=== PATIENT | male | born 1950 | race Caucasian/White ===

== ENCOUNTER → 2016-08-03 | Outpatient (REF) | payer MEDICARE, OTHER | LOC: M LABDRAWC 16:21 | PROVIDERS: ATTEND Nurse Practitioner Adult Health | DX: N39.0 Urinary tract infection, site not specified (principal) ==

== ENCOUNTER → 2016-09-22 | Outpatient (REF) | payer MEDICARE, OTHER ==
[2016-09-22 17:32] LABS: INR 1.4
== END ==
LOC: M LABDRAWC 16:32
PROVIDERS: ATTEND Internal Medicine
DX: Z51.81 Encounter for therapeutic drug level monitoring (principal); Z79.01 Long term (current) use of anticoagulants

== ENCOUNTER → 2016-09-22 | Outpatient (REF) | payer MEDICARE, OTHER | LOC: M LABDRAWC 16:33 | PROVIDERS: ATTEND Urology | DX: C61 Malignant neoplasm of prostate (principal); Z51.81 Encounter for therapeutic drug level monitoring; Z79.01 Long term (current) use of anticoagulants ==

== ENCOUNTER → 2016-10-06 | Outpatient (REF) | payer MEDICARE, OTHER ==
[2016-10-06 17:52] LABS: INR 2.3
== END ==
LOC: M LABDRAWC 16:27
PROVIDERS: ATTEND Family Medicine
DX: Z86.711 Personal history of pulmonary embolism (principal)

== ENCOUNTER → 2016-10-27 | Outpatient (REF) | payer MEDICARE, OTHER ==
[2016-10-27 18:52] LABS: INR 2.02
== END ==
LOC: M LABDRAWC 16:46
PROVIDERS: ATTEND Family Medicine
DX: Z79.01 Long term (current) use of anticoagulants (principal)

== ENCOUNTER → 2016-11-17 | Outpatient (REF) | payer MEDICARE, OTHER ==
[2016-11-17 16:41] LABS: INR 1.93
== END ==
LOC: M LAB REF 16:27
PROVIDERS: ATTEND Family Medicine
DX: Z79.01 Long term (current) use of anticoagulants (principal)

== ENCOUNTER → 2016-12-23 | Outpatient (REF) | payer MEDICARE, OTHER ==
[2016-12-23 19:33] LABS: INR 1.99
== END ==
LOC: M LAB REF 10:24
PROVIDERS: ATTEND Family Medicine
DX: Z86.711 Personal history of pulmonary embolism (principal); Z79.01 Long term (current) use of anticoagulants

== ENCOUNTER → 2017-01-14 | Outpatient (REF) | payer MEDICARE, OTHER ==
[2017-01-14 17:59] LABS: INR 2.22
== END ==
LOC: M LAB REF 17:09
PROVIDERS: ATTEND Family Medicine
DX: Z79.01 Long term (current) use of anticoagulants (principal)

== ENCOUNTER → 2017-08-16 | Outpatient (REF) | payer MEDICARE, OTHER ==
[2017-08-16 18:11] LABS: INR 1.96
== END ==
LOC: M LABDRAWC 16:22
DX: Z79.01 Long term (current) use of anticoagulants (principal)
CPT/HCPCS: 85610

== ENCOUNTER → 2017-10-10 | Outpatient (REF) | payer MEDICARE, OTHER ==
[2017-10-10 17:53] LABS: INR 2.48; PROTHROMBIN TIME 27.3 SECONDS (12.1-14.4)
== END ==
LOC: M LAB REF 16:54
DX: Z51.81 Encounter for therapeutic drug level monitoring (principal); Z79.01 Long term (current) use of anticoagulants; Z86.718 Personal history of other venous thrombosis and embolism; Z86.711 Personal history of pulmonary embolism
CPT/HCPCS: 85610

== ENCOUNTER 2020-09-23 18:28 | Emergency (ER) | payer MEDICARE, OTHER ==
[~2020-09-23] VITALS: Ht 185.4 cm; Wt 111.5 kg
[2020-09-23] MEDS ORDERED: CEPHALEXIN 500 MG CAP PO ONE (19:45)
[2020-09-23] MEDS ORDERED: CEPH500C PO (19:55)
[2020-09-23 20:57] VITALS: BP 176/96
== END 2020-09-23 21:01 | disposition left against medical advice (07) ==
LOC: EDBD 18:28 → M ED 18:28
DX: L03.115 Cellulitis of right lower limb (principal); I10 Essential (primary) hypertension; L97.519 Non-pressure chronic ulcer of other part of right foot with unspecified severity; Z88.8 Allergy status to other drugs, medicaments and biological substances

== ENCOUNTER → 2020-10-20 | Outpatient (REF) | payer MEDICARE, OTHER ==
[~2020-10-20] MED LIST: CEPH500C PO
[2020-10-20 15:35] LABS: BASO % 0.4 % (0.0-1.0); EOS # 0.3 10^3/uL (0.0-0.5); EOS % 3.3 % (0.0-3.0); HEMATOCRIT 33.9 % (42.0-52.0); HEMOGLOBIN 10.8 g/dl (13.5-17.5); LYMPH # 1.3 10^3/uL (1.5-5.0); LYMPH % 12.8 % (24.0-44.0); MEAN CORPUSCULAR HEMOGLOBIN 30.3 pg (27.0-33.0); MEAN CORPUSCULAR HGB CONC 31.9 g/dl (32.0-36.5); MEAN CORPUSCULAR VOLUME 95.2 fl (80.0-96.0); MONO # 0.8 10^3/uL (0.0-0.8); MONO % 8.2 % (2.0-8.0); NEUTROPHILS # 7.5 10^3/uL (1.5-8.5); NEUTROPHILS % 74.3 % (36.0-66.0); PLATELET COUNT, AUTOMATED 294 10^3/uL (150-450); RED BLOOD COUNT 3.56 10^6/uL (4.30-6.10); WHITE BLOOD COUNT 10.1 10^3/uL (4.0-10.0)
[2020-10-20 15:55] LABS: ERYTHROCYTE SEDIMENTATION RATE 63 mm/hr (0-20)
[2020-10-20 16:08] LABS: ALBUMIN 3.2 GM/DL (3.2-5.2); BILIRUBIN,TOTAL 0.3 MG/DL (0.2-1.0); C REACTIVE PROTEIN QUANTITATIV 2.86 MG/DL (0.00-0.30); CALCIUM LEVEL 8.7 MG/DL (8.8-10.2); CREATININE FOR GFR 1.28 MG/DL (0.70-1.30); GLOMERULAR FILTRATION RATE 59.3 (>49); TOTAL PROTEIN 7.4 GM/DL (6.4-8.2)
== END ==
LOC: M LAB REF 14:43
DX: Z79.899 Other long term (current) drug therapy (principal)

== ENCOUNTER → 2020-10-27 | Outpatient (REF) | payer MEDICARE, OTHER ==
[2020-10-27 16:47] LABS: BASO % 0.4 % (0.0-1.0); EOS # 0.4 10^3/uL (0.0-0.5); EOS % 6.1 % (0.0-3.0); HEMATOCRIT 31.9 % (42.0-52.0); HEMOGLOBIN 10.1 g/dl (13.5-17.5); LYMPH # 1.4 10^3/uL (1.5-5.0); LYMPH % 20.1 % (24.0-44.0); MEAN CORPUSCULAR HEMOGLOBIN 30.4 pg (27.0-33.0); MEAN CORPUSCULAR HGB CONC 31.7 g/dl (32.0-36.5); MEAN CORPUSCULAR VOLUME 96.1 fl (80.0-96.0); MONO # 0.7 10^3/uL (0.0-0.8); MONO % 10.5 % (2.0-8.0); NEUTROPHILS # 4.3 10^3/uL (1.5-8.5); NEUTROPHILS % 62.2 % (36.0-66.0); PLATELET COUNT, AUTOMATED 294 10^3/uL (150-450); RED BLOOD COUNT 3.32 10^6/uL (4.30-6.10); WHITE BLOOD COUNT 6.9 10^3/uL (4.0-10.0)
[2020-10-27 17:08] LABS: ALBUMIN 3.2 GM/DL (3.2-5.2); BILIRUBIN,TOTAL 0.2 MG/DL (0.2-1.0); C REACTIVE PROTEIN QUANTITATIV 1.27 MG/DL (0.00-0.30); CALCIUM LEVEL 8.4 MG/DL (8.8-10.2); CREATININE FOR GFR 1.31 MG/DL (0.70-1.30); GLOMERULAR FILTRATION RATE 57.8 (>49); TOTAL PROTEIN 6.6 GM/DL (6.4-8.2)
[2020-10-27 17:17] LABS: ERYTHROCYTE SEDIMENTATION RATE 47 mm/hr (0-20)
== END ==
LOC: M LAB REF 16:08
DX: Z79.2 Long term (current) use of antibiotics (principal)

== ENCOUNTER → 2023-09-05 | Outpatient (REF) | payer MEDICARE, OTHER ==
[2023-09-05 18:38] LABS: BASO % 0.5 % (0.0-1.0); EOS # 0.3 10^3/uL (0.0-0.5); EOS % 3.8 % (0.0-3.0); HEMATOCRIT 40.2 % (42.0-52.0); HEMOGLOBIN 13.3 g/dl (13.5-17.5); LYMPH # 0.8 10^3/uL (1.5-5.0); LYMPH % 12.4 % (24.0-44.0); MEAN CORPUSCULAR HGB CONC 33.1 g/dl (32.0-36.5); MEAN CORPUSCULAR VOLUME 93.7 fl (80.0-96.0); MONO # 1.4 10^3/uL (0.0-0.8); MONO % 21.3 % (2.0-8.0); NEUTROPHILS # 4.1 10^3/uL (1.5-8.5); NEUTROPHILS % 61.2 % (36.0-66.0); PLATELET COUNT, AUTOMATED 315 10^3/uL (150-450); RED BLOOD COUNT 4.29 10^6/uL (4.30-6.10); WHITE BLOOD COUNT 6.6 10^3/uL (4.0-10.0)
[2023-09-05 19:01] LABS: ALBUMIN 3.4 G/DL (3.2-5.2); ALKALINE PHOSPHATASE 93 U/L (46-116); ALT/SGPT 19 U/L (7.0-40); AST/SGOT 19 U/L (<34); BILIRUBIN,TOTAL 0.7 MG/DL (0.3-1.2); BLOOD UREA NITROGEN 15 MG/DL (9-23); CALCIUM LEVEL 8.9 MG/DL (8.3-10.6); CARBON DIOXIDE LEVEL 29 MMOL/L (20-31); CHLORIDE LEVEL 105 MMOL/L (98-107); CHOLESTEROL LEVEL 111 MG/DL (<200); CHOLESTEROL RISK RATIO 2.85 (<5); GLOMERULAR FILTRATION RATE > 60.0 (>42); GLUCOSE, FASTING 94 MG/DL (74-106); HDL CHOLESTEROL 38.9 MG/DL (>40); LDL CHOLESTEROL 58.9 MG/DL (<100); NON-HDL-C 72.1 MG/DL; POTASSIUM SERUM 4.6 MMOL/L (3.5-5.1); SODIUM LEVEL 139 MMOL/L (136-145); TOTAL PROTEIN 6.8 G/DL (5.7-8.2); TRIGLYCERIDES LEVEL 66 MG/DL (<150)
[2023-09-05 19:49] LABS: HEMOGLOBIN A1c 5.8 % (4.0-6.0)
[2023-09-07 08:13] LABS: LDL DIRECT 58 mg/dL (0-99)
== END ==
LOC: M LABDRAWC 17:14
PROVIDERS: ATTEND Internal Medicine Cardiovascular Disease
DX: E11.9 Type 2 diabetes mellitus without complications (principal); I25.10 Atherosclerotic heart disease of native coronary artery without angina pectoris; E78.5 Hyperlipidemia, unspecified

== ENCOUNTER → 2023-09-15 | Outpatient (REF) | payer MEDICARE, OTHER ==
[2023-09-15 19:21] LABS: BLOOD UREA NITROGEN 16 MG/DL (9-23); CALCIUM LEVEL 8.6 MG/DL (8.3-10.6); CARBON DIOXIDE LEVEL 29 MMOL/L (20-31); CHLORIDE LEVEL 99 MMOL/L (98-107); GLOMERULAR FILTRATION RATE > 60.0 (>42); GLUCOSE, FASTING 113 MG/DL (74-106); POTASSIUM SERUM 3.6 MMOL/L (3.5-5.1); PROSTATIC SPECIFIC AG MONITOR 0.04 NG/ML (< 4.00); SODIUM LEVEL 136 MMOL/L (136-145)
[2023-09-15 19:23] LABS: TESTOSTERONE 112 NG/DL (241-827)
== END ==
LOC: M LRY 17:17
PROVIDERS: ATTEND Urology
DX: C61 Malignant neoplasm of prostate (principal); R79.89 Other specified abnormal findings of blood chemistry

== ENCOUNTER → 2023-10-13 | Outpatient (REF) | payer MEDICARE, OTHER ==
[2023-10-13 20:05] LABS: PSA SCREENING 0.04 NG/ML (< 4.00)
[2023-10-13 20:11] LABS: BLOOD UREA NITROGEN 14 MG/DL (9-23); CALCIUM LEVEL 9.1 MG/DL (8.3-10.6); CARBON DIOXIDE LEVEL 30 MMOL/L (20-31); CHLORIDE LEVEL 102 MMOL/L (98-107); CREATININE FOR GFR 0.81 MG/DL (0.70-1.30); GLOMERULAR FILTRATION RATE > 60.0 (>42); GLUCOSE, FASTING 102 MG/DL (74-106); SODIUM LEVEL 139 MMOL/L (136-145); TESTOSTERONE 116 NG/DL (241-827)
== END ==
LOC: M LABDRAWC 16:44
PROVIDERS: ATTEND Urology
DX: R79.89 Other specified abnormal findings of blood chemistry (principal); Z85.46 Personal history of malignant neoplasm of prostate; N28.89 Other specified disorders of kidney and ureter
CPT/HCPCS: 36415; 80048; 84403; G0103